=== PATIENT | female | born 1955 | race Caucasian/White ===

== ENCOUNTER → 2016-09-02 | Outpatient (CLI) | payer OTHER, BC ==
[~2016-09-02] MED LIST: ASPEC325 PO; ATOR-24 PO; CLOP1TAB15 PO; METO50TA16 PO; NTRGSL/4 SL
--- NOTE | 2016-09-02 12:38 | DIAGNOSTIC IMAGING REPORT ---
RIGHT ANKLE MIN 3 VIEWS ROUTINE CLINICAL HISTORY: ACUTE ANKLE PAIN R Right pain COMPARISON: None. DISCUSSION: The bones and joint spaces appear intact. There is no evidence of fracture, dislocation or bony disease. There is no evidence for soft tissue swelling. IMPRESSION: Negative study. Electronically signed by: Bishnu Thompson M.D. 09/02/2016 12:37 PM Dictated Date/Time: 09/02/2016 12:36 PM
== END | disposition home or self-care (01) ==
LOC: C.RAD1850 12:18
PROVIDERS: ATTEND Nurse Practitioner Family
DX: M25.571 Pain in right ankle and joints of right foot (principal)

== ENCOUNTER → 2017-01-21 | Outpatient (CLI) | payer BC, OTHER ==
--- NOTE | 2017-01-22 13:54 | MAMMOGRAPHY REPORT ---
BILATERAL DIGITAL SCREENING MAMMOGRAM TOMOSYNTHESIS WITH CAD: 01/21/2017 CLINICAL HISTORY: Routine screening. Patient has no complaints. TECHNIQUE: Breast tomosynthesis in addition to standard 2D mammography was performed. Current study was also evaluated with a Computer Aided Detection (CAD) system. COMPARISON: Comparison is made to exams dated: 01/10/2016 mammogram, 01/08/2015 mammogram, 01/05/2014 m ammogram, 01/04/2013 mammogram - [facility], 01/07/2008, and 12/30/2006. BREAST COMPOSITION: The tissue of both breasts is almost entirely fatty. FINDINGS: No suspicious mass, architectural distortion or cluster of microcalcifications is seen. IMPRESSION: ACR BI-RADS CATEGORY 1: NEGATIVE There is no mammographic evidence of malignancy. A 1 year screening mammogram is recommended. The pa tient will receive written notification of the results. Approximately 10% of breast cancers are not detected with mammography. A negative mammographic report should not delay biopsy if a clinically suggestive mass is present. Aundrea ramirez/jas:01/21/2017 15:12:09 Intrusion Analyst: Mena RUIZ(R)(M), [facility] letter sent: Normal 1/2 BI-RADS Code: ACR BI-RADS Category 1: Negative
== END | disposition home or self-care (01) ==
LOC: C.MAMM 14:47
PROVIDERS: ATTEND Family Medicine
DX: Z12.31 Encounter for screening mammogram for malignant neoplasm of breast (principal)

== ENCOUNTER → 2017-03-27 | Outpatient (CLI) | payer OTHER, BC ==
[2017-03-27 09:47] LABS: MANUAL MICROSCOPIC REQUIRED? YES; REVIEW REQ? NO; URINE APPEARANCE CLOUDY (CLEAR); URINE BILIRUBIN NEG (NEG); URINE COLOR RED; URINE NITRITE POS (NEG); UROBILINOGEN POS (NEG)
[2017-03-27 09:51] LABS: URINE BACTERIA NEG (NEG); URINE WBC >30 /hpf (0-5)
== END | disposition home or self-care (01) ==
LOC: C.LAB1850 08:51
PROVIDERS: ATTEND Obstetrics & Gynecology
DX: N39.0 Urinary tract infection, site not specified (principal)

== ENCOUNTER → 2017-04-01 | Outpatient (CLI) | payer BC | END | disposition home or self-care (01) | LOC: C.PATHSPEC 17:13 | PROVIDERS: ATTEND Urology | DX: N39.0 Urinary tract infection, site not specified (principal); R30.0 Dysuria; R31.0 Gross hematuria ==

== ENCOUNTER → 2017-04-10 | Outpatient (CLI) | payer BC, OTHER ==
[2017-04-10 13:26] LABS: ALBUMIN 3.9 gm/dl (3.4-5.0); ALKALINE PHOSPHATASE 78 U/L (45-117); ALT/SGPT 51 U/L (12-78); AST/SGOT 21 U/L (15-37); BLOOD UREA NITROGEN 14 mg/dl (7-18); CARBON DIOXIDE 26 mmol/L (21-32); CREATININE 0.64 mg/dl (0.60-1.20); GLUCOSE 102 mg/dl (70-99); POTASSIUM 3.8 mmol/L (3.5-5.1); SODIUM 139 mmol/L (136-145); TOTAL PROTEIN 7.2 gm/dl (6.4-8.2)
== END | disposition home or self-care (01) ==
LOC: C.LAB 11:33
PROVIDERS: ATTEND Urology
DX: N39.0 Urinary tract infection, site not specified (principal); R30.0 Dysuria; R31.0 Gross hematuria

== ENCOUNTER → 2017-04-17 | Outpatient (CLI) | payer BC, OTHER ==
[~2017-04-17] MED LIST changes: +OPTIRAY 320 IV PRN
--- NOTE | 2017-04-17 11:17 | DIAGNOSTIC IMAGING REPORT ---
ABDOMEN AND PELVIS CT WITH AND WITHOUT IV CONTRAST, UROGRAM PROTOCOL CT DOSE: 1669.94 mGycm HISTORY: N39.0 UTI (urinary tract infection)R30.0 [id number] Gross juliana TECHNIQUE: Multiaxial CT images of the abdomen and pelvis were performed both before and after the use of intravenous contrast to evaluate the urinary system. Maximal intensity projection images were performed at the workstation by the radiologist. A dose lowering technique was utilized adhering to the principles of ALARA. COMPARISON STUDY: None. FINDINGS: No renal or ureteral calculi. No hydronephrosis. No suspicious filling defects seen within the opacified bilateral renal collecting systems, ureters, or bladder. Of note, the mid right ureter is not opacified but normal in caliber. The bladder is also suboptimally evaluated due to decompression. No definite bladder masses. The lungs are clear. No suspicious lytic or blastic osseous lesions. Mild hepatic steatosis. Cholecystectomy. The pancreas, spleen, and adrenal glands are unremarkable. Small focal area of scarring within the upper pole of the right kidney. There is a 3 mm hypodense lesion within the right kidney which is too small to characterize. A 4.6 cm cyst within the lower pole of the left kidney. No bowel wall thickening or obstruction. Colonic diverticulosis. Normal appendix. No retroperitoneal lymphadenopathy. Hysterectomy. Bilateral ovarian cysts. Dominant cyst within the right ovary measures 1.9 cm. IMPRESSION: 1. No renal or ureteral stones. No hydronephrosis. 2. No suspicious filling defects seen within the opacified bilateral renal collecting systems, ureters, or bladder as described above. 3. Hysterectomy. Bilateral small ovarian cysts. Electronically signed by: Juan David Clinton M.D. 04/17/2017 11:15 AM Dictated Date/Time: 04/17/2017 11:02 AM
== END | disposition home or self-care (01) ==
LOC: C.CTS 10:26
PROVIDERS: ATTEND Urology
DX: N39.0 Urinary tract infection, site not specified (principal); R31.0 Gross hematuria; R30.0 Dysuria; N83.201 Unspecified ovarian cyst, right side

== ENCOUNTER → 2017-06-04 | Outpatient (CLI) | payer OTHER ==
[~2017-06-04] MED LIST changes: -OPTIRAY 320 IV PRN
== END | disposition home or self-care (01) ==
LOC: C.MAMM 12:54
PROVIDERS: ATTEND Family Medicine
DX: M85.851 Other specified disorders of bone density and structure, right thigh (principal); M85.852 Other specified disorders of bone density and structure, left thigh; M85.88 Other specified disorders of bone density and structure, other site

== ENCOUNTER → 2017-06-17 | Outpatient (CLI) | payer OTHER | END | disposition home or self-care (01) | LOC: C.LAB1850 15:01 | PROVIDERS: ATTEND Nurse Practitioner Adult Health | DX: N39.0 Urinary tract infection, site not specified (principal) ==

== ENCOUNTER → 2017-08-28 | Outpatient (CLI) | payer OTHER | END | disposition home or self-care (01) | LOC: C.LAB 15:02 | PROVIDERS: ATTEND Nurse Practitioner Family | DX: N39.0 Urinary tract infection, site not specified (principal); R30.0 Dysuria ==

== ENCOUNTER 2025-01-06 14:42 | Observation (INO) ==
--- NOTE | 2025-01-06 15:00 | Emergency Department Note ---
Impression & Plan Generalized weakness, MICHEAL (acute kidney injury), Hypercalcemia, S/P ureteral stent placement ED Provider Note NAME: JORDEN ROY AGE: 70 SEX: F : 1955 ARRIVES VIA: Walk-In INFORMANT: Patient, ED PROVIDER(S): Dex Sanches DO CHIEF COMPLAINT: Weakness HPI: The patient is a 70-year-old female who presented to the emergency department for an evaluation of generalized weakness. The patient states that she noticed generalized weakness over the last few days. She has a recent history of a kidney stone that was removed and she now has a ureteral stent. She states that she did peeing blood. She also notices pelvic cramping. She denies having any vomiting. She has had no fever or cough. She denies have any chest pain or hemoptysis. ROS: See above HPI for pertinent positives & negatives. A total of 10 systems reviewed and were otherwise negative. PAST MEDICAL HISTORY: See Below PAST SURGICAL HISTORY: See Below FAMILY HISTORY: See Below SOCIAL HISTORY: See Below HOME MEDICATIONS: See Below ALLERGIES: See Below VITALS: See Below PHYSICAL EXAMINATION: GENERAL: The patient is awake and alert. She follows commands slowly. EYES: The conjunctivae are clear. The pupils are round and reactive. EARS, NOSE, MOUTH AND THROAT: The nose is without any evidence of any deformity. NECK: The neck is nontender and supple. RESPIRATORY: Normal respiratory effort is noted there is no evidence of wheezing rhonchi or rales CARDIOVASCULAR: Regular rate and rhythm noted there no murmurs rubs or gallops normal S1 normal S2. GASTROINTESTINAL: The abdomen is soft. Abdomen is nontender. BACK: No midline tenderness or or step-off noted range of motion in flexion extension as well as rotation no signs of muscle spasm noted MUSCULOSKELETAL/EXTREMITIES: There is no evidence of gross deformity full range of motion is noted in the hips and shoulders. SKIN: Skin is warm and dry. There is no pedal edema. Skin is pale. NEUROLOGIC: Patient is awake and oriented x3 strength is symmetric patellar reflexes are 2+ bilaterally MEDICAL DECISION MAKING: The patient is a 70-year-old female who presented to the emergency department for an evaluation of generalized weakness. The patient is a history of a recently placed left ureteral stent. The patient states that she has not been doing well and not been eating not been drinking. The patient was treated with IV fluids in the emergency department. On reevaluation she was somewhat improved. I discussed the patient's laboratory and radiographic studies with her. She was found to have signs of electrolyte abnormality including elevated calcium. She was also treated for MICHEAL. On reevaluation she was somewhat improved. I discussed patient's laboratory and radiographic studies with her. I also discussed her condition with the on-call [facility] hospitalist. They have agreed to evaluate the patient in the emergency department for further management and disposition. Triage Nursing notes reviewed. Prior medical records reviewed Vital Signs: reviewed and remarkable for elevated blood pressure. Differential diagnosis: Infection, dehydration, metabolic abnormality, hypo/hyperglycemia, electrolyte disturbance, anemia, hypoxia, cardiac sources, intracerebral event, toxicologic, neurologic, as well as other pathologies. ER treatment provided: See below Diagnostics interpreted by me: ECG: EKG was obtained in the emergency department. My interpretation is normal sinus rhythm at 77 bpm. There is no ectopy. There is no acute ST segment abnormalities noted. Early transition was noted. This was compared to a tracing from December 15, 2024. No changes were noted. Cardiac Monitoring: An order was placed for continuous cardiac monitoring. The monitor shows a rate of 72 bpm with sinus rhythm. Laboratory studies: As stated above and show below. Imaging studies: See below. Radiographic imaging was reviewed by myself Consultation(s): I discussed this case with Dr. Atkins [facility] Past Med/Surg History Problem List (Updated 01/06/25 @ 16:16 by Dex Sanches DO) S/P ureteral stent placement (Acute) Hypercalcemia (Acute) MICHEAL (acute kidney injury) (Acute) Generalized weakness (Acute) Bilateral ovarian cysts Encounter for preoperative assessment (Acute) Nephrolithiasis (Acute) Hematuria (Acute) Impaired glucose tolerance Epidermal cyst Heart disease Hyperparathyroidism Hyperlipemia Arthritis Right knee DJD Chronic interstitial cystitis (Chronic) Osteoporosis (Acute) Postmenopausal atrophic vaginitis (Chronic) Recurrent UTI (Chronic) Antiplatelet or antithrombotic long-term use CAD (coronary artery disease) Status post insertion of drug-eluting stent into left anterior descending (LAD) artery Left knee DJD Left knee pain Medical History Hyperparathyroidism per chart, pt. unaware Recurrent UTI had last week, had Urine Culture yesterday 12/20/[address] whitaker' office, no current symptoms Osteoporosis Arthritis Nephrolithiasis Vertigo Dyslipidemia Chronic interstitial cystitis CAD (coronary artery disease) s/p cardiac stent x 1 to LAD in 2011 Tachycardia hx, no current issues Depression Menopausal symptoms Knee effusion, left Tear of medial meniscus of left knee states needs replaced Surgical History Hx of cardiac cath (2011) [facility], [place], 1 stent, dr. pina History of removal of cyst (05/04/23) FINAL DIAGNOSIS: In office procedure Dr. Izquierdo Skin, upper mid back, excision: - Findings most consistent with a ruptured epidermoid cyst Hx of colonoscopy History of coronary artery stent placement (2011) 1 stent H/O: hysterectomy (1989) Hx of tubal ligation Hx of cholecystectomy (1994) Family History Father Coronary heart disease Grandmother (Maternal) Colorectal cancer Denies family history of Ovarian cancer Breast cancer Social History Smoking Status: Never smoker Second Hand Exposure: No; Do You Dip or Chew Tobacco: No; Hx Alcohol Use: No Hx Substance Use: No Preferred Language: French Communication Ability: Effective Commercial Green Retrofit Architect Required: No Beliefs That Will Affect Care: None marital status: Current Living Situation: Spouse current occupational status: employed other: Car Sales Consultant at [employer] Feels Safe at Home: Yes Assistive Devices: Hearing Aid - Bilateral Allergies Allergies Allergy/AdvReac Type Severity Reaction Status Date / Time thiopental Allergy Severe Vomiting Verified 12/26/24 08:24 Arnica (Arnica [place]) Allergy Intermediate Shortness Verified 12/26/24 08:24 of breath Penicillins Allergy Mild rash Verified 12/26/24 08:24 Home Meds Home Medications Medication Instructions Recorded Confirmed aspirin 81 mg tablet 81 mg PO HS 05/17/19 12/26/24 coenzyme Q10 100 mg capsule 100 mg PO QAM 05/17/19 12/26/24 cranberry extract 250 mg tablet 250 mg PO BID 12/08/22 12/21/24 omega-3 acid ethyl esters 1 gram 1 cap PO QAM 05/25/24 12/26/24 capsule tirzepatide (weight loss) 2.5 2.5 mg subcut WK 12/13/24 12/26/24 mg/0.5 mL subcutaneous pen injector (Zepbound) [id number] 250 mg-dha 90 1 cap PO BID 12/15/24 12/26/24 mg-epa 160 [id number] capsule (Ocuvite Adult 50 Plus) Algaecal Collagen Powder 1 unit PO QAM 12/21/24 12/26/24 Algaecal Strontium Boost 2 tab PO HS 12/21/24 12/26/24 atorvastatin 20 mg tablet 20 mg PO QPM 12/21/24 12/26/24 calcium 500 mg tablet 0 mg PO BID 12/21/24 12/26/24 cholecalciferol (vitamin D3) 25 25 mcg PO DAILY 12/21/24 12/26/24 mcg (1,000 unit) capsule (Vitamin D3) clopidogrel 75 mg tablet 75 mg PO QAM 12/21/24 12/26/24 estradiol 0.01% (0.1 mg/gram) 1 g vaginal .COMPLEX PRN . 12/21/24 12/26/24 vaginal cream nitrofurantoin 100 mg PO Q12H PRN uti 12/21/24 12/26/24 monohydrate/macrocrystals 100 mg capsule (Macrobid) phenazopyridine 200 mg tablet 200 mg PO TID PRN uti 12/21/24 12/26/24 (Pyridium) venlafaxine 75 mg capsule,extended 75 mg PO QAM 12/21/24 12/26/24 release 24 hr Previous Rx's Medication Instructions Recorded phenazopyridine 200 mg tablet 200 mg PO Q8H PRN pain #10 tabs 12/26/24 (Pyridium) tamsulosin 0.4 mg capsule 0.4 mg PO HS #30 caps 12/26/24 Results & Data (ED) Vital Signs Vital Signs - 24 hr 01/06/25 14:47 01/06/25 15:20 01/06/25 15:24 Temperature 36.5 C Temperature Source Temporal Artery Scan Pulse Rate 88 68 69 Pulse Rate from SpO2 Sensor 70 Respiratory Rate 18 16 21 Respiratory Effort / Characteristics Non-Labored Spontaneous Respiratory Depth Normal Blood Pressure 132/83 Blood Pressure Mean 99 Pulse Oximetry 95 92 98 Oxygen Delivery Method Room Air Nasal Cannula Oxygen Flow Rate 2 Sepsis Recent Fever Within 48 Hours No Sepsis New/Unexplained Change in Mental Status No Sepsis Action Taken by Nursing No Action Required 01/06/25 15:27 01/06/25 15:30 01/06/25 15:30 Temperature Temperature Source Pulse Rate 70 73 Pulse Rate from SpO2 Sensor 72 Respiratory Rate 17 Respiratory Effort / Characteristics Respiratory Depth Blood Pressure 164/84 H Blood Pressure Mean 110 Pulse Oximetry 98 Oxygen Delivery Method Oxygen Flow Rate Sepsis Recent Fever Within 48 Hours Sepsis New/Unexplained Change in Mental Status Sepsis Action Taken by Nursing 01/06/25 15:30 01/06/25 15:30 01/06/25 15:48 Temperature Temperature Source Pulse Rate 78 Pulse Rate from SpO2 Sensor Respiratory Rate 13 Respiratory Effort / Characteristics Respiratory Depth Blood Pressure 164/84 H 164/84 H Blood Pressure Mean 110 110 Pulse Oximetry Oxygen Delivery Method Oxygen Flow Rate Sepsis Recent Fever Within 48 Hours Sepsis New/Unexplained Change in Mental Status Sepsis Action Taken by Nursing 01/06/25 15:57 01/06/25 16:00 01/06/25 16:09 Temperature Temperature Source Pulse Rate 56 L 70 Pulse Rate from SpO2 Sensor 70 71 Respiratory Rate 15 12 Respiratory Effort / Characteristics Respiratory Depth Blood Pressure 184/91 H Blood Pressure Mean 133 Pulse Oximetry 99 98 Oxygen Delivery Method Oxygen Flow Rate Sepsis Recent Fever Within 48 Hours Sepsis New/Unexplained Change in Mental Status Sepsis Action Taken by Nursing 01/06/25 16:18 Temperature Temperature Source Pulse Rate 72 Pulse Rate from SpO2 Sensor 72 Respiratory Rate 12 Respiratory Effort / Characteristics Respiratory Depth Blood Pressure 184/91 H Blood Pressure Mean 122 Pulse Oximetry 98 Oxygen Delivery Method Oxygen Flow Rate Sepsis Recent Fever Within 48 Hours Sepsis New/Unexplained Change in Mental Status Sepsis Action Taken by Longterm Medications Current Medication List: was personally reviewed by me Laboratory Data Attestation: I reviewed the patient's lab results. 01/06/25 15:04 01/06/25 15:04 Lab Results 01/06/25 01/06/25 Range/Units 15:04 15:12 WBC 7.26 (4.8-10.8) K/ul RBC 4.32 (4.20-5.40) M/uL Hgb 13.3 (12.0-16.0) g/dl POC Hgb 12.9 (12.0-16.0) g/dl Hct 38.2 (37.0-47.0) % POC Hct 38 (37-47) % MCV 88.4 (80.0-100.0) fL MCH 30.8 (25.0-34.0) pg MCHC 34.8 (32.0-36.0) g/dL RDW Std Deviation 41.3 (36.4-46.3) fL RDW Coeff of Ileana 12.6 (11.5-14.5) % Plt Count 245 (130-400) K/uL MPV 10.1 (9.4-12.4) fL Immature Gran % (Auto) 0.4 % Neut % (Auto) 73.9 % Lymph % (Auto) 11.0 % Mckenzie % (Auto) 10.7 % Eos % (Auto) 3.6 % Baso % (Auto) 0.4 % Neut # (Auto) 5.36 (1.40-6.50) K/uL Lymph # (Auto) 0.80 L (1.20-3.40) K/uL Mckenzie # (Auto) 0.78 H (0.11-0.59) K/uL Eos # (Auto) 0.26 (0.00-0.50) K/uL Baso # (Auto) 0.03 (0.00-0.20) K/uL Immature Gran # (Auto) 0.03 (0.01-0.20) K/uL POC Sodium 134 L (135-144) mmol/L Sodium 137 (136-145) mmol/L POC Potassium 3.2 L (3.3-5.0) mmol/L Potassium 3.3 L (3.5-5.1) mmol/L POC Chloride 96 L (101-112) mmol/L Chloride 95 L (98-107) mmol/L Carbon Dioxide 35 H (21-32) mmol/L POC Total CO2 34 H (24-31) mmol/L Anion Gap 7 (3-11) POC Anion Gap 8.0 L (16-25) mmol/L POC BUN 29 H (7-18) mg/dl BUN 29 H (6-23) mg/dl Creatinine 2.13 H (0.6-1.2) mg/dl POC Creatinine 2.7 H (0.6-1.3) mg/dl Est Cr Clr Drug Dosing Not Reportable eGFR 24.61 BUN/Creatinine Ratio 13.6 (10-20) Glucose 122 H (70-99(Fasting)) mg/dl POC Glucose (other) 123 H (70-99) mg/dl Calcium 17.9 H* (8.6-10.3) mg/dl POC Ioniz Calcium Antolin 2.13 H* (1.12-1.32) mmol/l Total Bilirubin 1.1 H (0.2-1.0) mg/dl AST 16 (13-39) U/L ALT 16 (7-52) U/L Alkaline Phosphatase 82 (34-104) U/L Troponin I High Sens 20.3 H (0-14) pg/ml Total Protein 6.9 (6.0-8.3) gm/dl Albumin 4.1 (3.4-5.0) gm/dl Globulin 2.8 (2.5-4.0) gm/dl Albumin/Globulin Ratio 1.5 (0.9-2) Lipase 13 (11-82) U/L Administered Medications Discontinued Medications Sodium Chloride (Nss) 1,000 mls @ 999 mls/hr IV .Q1H1M STA Stop: 01/06/25 15:56 Last Admin: 01/06/25 15:05 Dose: 999 mls/hr Documented By: MABLE Sodium Chloride (Nss) 1,000 mls @ 999 mls/hr IV .Q1H1M ONE Stop: 01/06/25 16:53 Last Admin: 01/06/25 16:02 Dose: 999 mls/hr Documented By: MABLE Imaging Data Attestation: I personally reviewed and interpreted this imaging study as follows: My Impression: CT scan of the abdomen and pelvis was obtained in the emergency department obstruction, final report below. Radiologist's Impression: Abdomen/Pelvis CT 01/06/25 15:21 CT SCAN OF THE ABDOMEN AND PELVIS WITHOUT IV CONTRAST CLINICAL HISTORY: Generalized abdominal pain. Recent stent placement. COMPARISON STUDY: Abdominal CT dated 12/06/2024 TECHNIQUE: CT scan of the abdomen and pelvis is performed from the lung bases to the proximal femora. Images are reviewed in the axial, sagittal, and coronal planes. IV contrast was not administered for this examination. A dose lowering technique was utilized adhering to the principles of ALARA. CT DOSE: 863.45 mGy.cm FINDINGS: Lung bases: The heart is normal in size and without pericardial effusion. The coronary arteries are densely calcified. There is a tiny hiatal hernia. The lung bases are clear. Liver: The unenhanced liver is normal in size, contour, and attenuation. There is no intrahepatic biliary ductal dilatation. Gallbladder: Surgically absent noting clips in the gallbladder fossa. Spleen: Normal in size and attenuation. Pancreas: The unenhanced pancreas is grossly unremarkable. Adrenal glands: Unremarkable. Kidneys: The unenhanced kidneys are normal in size. A right vesicoureteral stent is in appropriate position. No calcifications are identified in the right ureter along the course of the stent. Urothelial thickening involving the right ureter with surrounding infiltration is nonspecific and likely related to the presence of the stent. There is mild right-sided hydronephrosis. There are numerous (greater than 10) stone fragments scattered throughout the right renal collecting system which measure up to 8 mm. No left renal calculi are identified and there is no left ureteral stone or hydronephrosis. A 5.7 cm cyst arises from the left lower pole. Abdominal vasculature: The abdominal aorta is normal in course and caliber noting mild to moderate atherosclerotic calcification. Bowel: There is moderate sigmoid diverticulosis without CT evidence of acute diverticulitis. No bowel obstruction is seen. Mild to moderate fecal retention is noted throughout the colon. The appendix is well-visualized and normal. Peritoneum: There is no intraperitoneal free air or abdominal ascites. There is a fat-containing umbilical hernia. Lymphadenopathy: None. Pelvic viscera: The bladder is normal as visualized, and contains the distal end of a right ureteral stent. The uterus is surgically absent. Simple cystic foci are again seen within both ovaries and measure up to 2.7 cm. These were better assessed by a pelvic ultrasound on 12/14/2024. Skeletal structures: The skeletal structures are osteopenic. There is mild lumbosacral spondylosis. No lytic or blastic lesions are seen. IMPRESSION: 1. A right-sided ureteral stent is new previous. No calcifications are identified in the right ureter along the course of the stent. 2. Urothelial thickening of the right ureter with surrounding infiltration is nonspecific and may be related to presence of an indwelling catheter. Correlate with clinical findings and urinalysis. 3. There is mild right-sided hydronephrosis. 4. There are numerous stone fragments in the right renal collecting system which measure up to 8 mm. 5. There are no left renal calculi identified and no left-sided hydronephrosis. 6. Advanced coronary artery atherosclerosis. 7. Sigmoid diverticulosis without CT evidence of acute diverticulitis. 8. Additional findings as above. ACT 112: Negative or not required by law. Electronically signed by: Karl Urena M.D. 01/06/2025 4:00 PM Discharge Plan Visit Data Chief Complaint: Illness Stated Complaint: EXHAUSTION, DEHYDRATION, KIDNEY STONES REMOVED 12/26 ED Provider: Dex Sanches Discharge Problem: Generalized weakness, MICHEAL (acute kidney injury), Hypercalcemia, S/P ureteral stent placement Patient Disposition: Being Evaluated by Hospitalist Condition: Fair Forms Stand Alone Forms: My [facility] [employer] Prescriptions Prescriptions: No Action aspirin 81 mg tablet 81 mg PO HS coenzyme Q10 100 mg capsule 100 mg PO QAM omega-3 acid ethyl esters 1 gram capsule 1 cap PO QAM cranberry extract 250 mg tablet 250 mg PO BID Ocuvite Adult 50 Plus 250 mg (90 mg-160 mg) capsule 1 cap PO BID Zepbound 2.5 mg/0.5 mL pen injector 2.5 mg subcut WK Rx Instructions: Thursday Algaecal Collagen Powder 1 unit 1 unit PO QAM Algaecal Strontium Boost 1 unit 2 tab PO HS calcium 500 mg Tablet 0 mg PO BID cholecalciferol (vitamin D3) [Vitamin D3] 25 mcg (1,000 unit) Capsule 25 mcg PO DAILY Rx Instructions: also Vit A, E, and K mix venlafaxine 75 mg capsule,extended release 24hr 75 mg PO QAM atorvastatin 20 mg tablet 20 mg PO QPM phenazopyridine [Pyridium] 200 mg tablet 200 mg PO TID PRN (Reason: uti) clopidogrel 75 mg tablet 75 mg PO QAM estradiol 0.01 % (0.1 mg/gram) cream 1 g PV .COMPLEX PRN (Reason: .) Rx Instructions: 1 g vaginally twice weekly; nitrofurantoin monohyd/m-cryst [Macrobid] 100 mg capsule 100 mg PO Q12H PRN (Reason: uti) Rx Instructions: must administer with a meal/food phenazopyridine [Pyridium] 200 mg tablet 200 mg PO Q8H PRN (Reason: pain) Qty: 10 0RF tamsulosin 0.4 mg capsule 0.4 mg PO HS Qty: 30 0RF Referrals Referrals: Reji Jones [Primary Care Provider] -
[2025-01-06] MEDS: SODIUM CHLORIDE 0.9% 1,000 ML IV STA (15:05)
[2025-01-06 15:20] LABS: Hematocrit (blood only) 38.2 % (37.0-47.0); Hemoglobin 13.3 g/dl (12.0-16.0); Immature Granulocytes # (auto) 0.03 K/uL (0.01-0.20); Immature Granulocytes % (auto) 0.4 %; Mean Corpuscular Hemoglobin 30.8 pg (25.0-34.0); Mean Corpuscular Volume 88.4 fL (80.0-100.0); Platelet Count 245 K/uL (130-400); RDW Standard Deviation 41.3 fL (36.4-46.3); Red Blood Count 4.32 M/uL (4.20-5.40); White Blood Count 7.26 K/ul (4.8-10.8)
--- NOTE | 2025-01-06 16:01 | CT Scan Report ---
CT SCAN OF THE ABDOMEN AND PELVIS WITHOUT IV CONTRAST CLINICAL HISTORY: Generalized abdominal pain. Recent stent placement. COMPARISON STUDY: Abdominal CT dated 12/06/2024 TECHNIQUE: CT scan of the abdomen and pelvis is performed from the lung bases to the proximal femora. Images are reviewed in the axial, sagittal, and coronal planes. IV contrast was not administered for this examination. A dose lowering technique was utilized adhering to the principles of ALARA. CT DOSE: 863.45 mGy.cm FINDINGS: Lung bases: The heart is normal in size and without pericardial effusion. The coronary arteries are d ensely calcified. There is a tiny hiatal hernia. The lung bases are clear. Liver: The unenhanced liver is normal in size, contour, and attenuation. There is no intrahepatic lopez iary ductal dilatation. Gallbladder: Surgically absent noting clips in the gallbladder fossa. Spleen: Normal in size and attenuation. Pancreas: The unenhanced pancreas is grossly unremarkable. Adrenal glands: Unremarkable. Kidneys: The unenhanced kidneys are normal in size. A right vesicoureteral stent is in appropriate po sition. No calcifications are identified in the right ureter along the course of the stent. Urothelia l thickening involving the right ureter with surrounding infiltration is nonspecific and likely relat ed to the presence of the stent. There is mild right-sided hydronephrosis. There are numerous (greate r than 10) stone fragments scattered throughout the right renal collecting system which measure up to 8 mm. No left renal calculi are identified and there is no left ureteral stone or hydronephrosis. A 5.7 cm cyst arises from the left lower pole. Abdominal vasculature: The abdominal aorta is normal in course and caliber noting mild to moderate at herosclerotic calcification. Bowel: There is moderate sigmoid diverticulosis without CT evidence of acute diverticulitis. No bowel obstruction is seen. Mild to moderate fecal retention is noted throughout the colon. The appendix is well-visualized and normal. Peritoneum: There is no intraperitoneal free air or abdominal ascites. There is a fat-containing umbi lical hernia. Lymphadenopathy: None. Pelvic viscera: The bladder is normal as visualized, and contains the distal end of a right ureteral stent. The uterus is surgically absent. Simple cystic foci are again seen within both ovaries and christi sure up to 2.7 cm. These were better assessed by a pelvic ultrasound on 12/14/2024. Skeletal structures: The skeletal structures are osteopenic. There is mild lumbosacral spondylosis. N o lytic or blastic lesions are seen. IMPRESSION: 1. A right-sided ureteral stent is new previous. No calcifications are identified in the right ureter along the course of the stent. 2. Urothelial thickening of the right ureter with surrounding infiltration is nonspecific and may be related to presence of an indwelling catheter. Correlate with clinical findings and urinalysis. 3. There is mild right-sided hydronephrosis. 4. There are numerous stone fragments in the right renal collecting system which measure up to 8 mm. 5. There are no left renal calculi identified and no left-sided hydronephrosis. 6. Advanced coronary artery atherosclerosis. 7. Sigmoid diverticulosis without CT evidence of acute diverticulitis. 8. Additional findings as above. ACT 112: Negative or not required by law. Electronically signed by: Karl Urena M.D. 01/06/2025 4:00 PM
[2025-01-06] MEDS: SODIUM CHLORIDE 0.9% 1,000 ML IV ONE (16:02)
[2025-01-06 16:07] LABS: Alanine Aminotransferase 16 U/L (7-52); Albumin Globulin Ratio 1.5 (0.9-2); Albumin Level 4.1 gm/dl (3.4-5.0); Alkaline Phosphatase 82 U/L (34-104); Anion Gap 7 (3-11); Bilirubin,Total 1.1 mg/dl (0.2-1.0); Blood Urea Nitrogen 29 mg/dl (6-23); Calcium 17.9 mg/dl (8.6-10.3); Carbon Dioxide 35 mmol/L (21-32); Chloride 95 mmol/L (98-107); Globulin 2.8 gm/dl (2.5-4.0); Glucose 122 mg/dl (70-99(Fasting)); Lipase 13 U/L (11-82); Potassium 3.3 mmol/L (3.5-5.1); Sodium 137 mmol/L (136-145); Total Protein 6.9 gm/dl (6.0-8.3)
[2025-01-06] MEDS ORDERED: ACETAMINOPHEN 325 MG TAB PO PRN (17:21)
[2025-01-06] MEDS ORDERED: ONDANSETRON INJ 2 MG/ML 2 ML VIAL IV PRN (17:21)
--- NOTE | 2025-01-06 17:21 | History & Physical Report ---
Date of Service January 06, 2025 Assessment & Plan (1) Hypercalcemia: (2) S/P ureteral stent placement: (3) Generalized weakness: (4) Hematuria: (5) Nephrolithiasis: (6) CAD (coronary artery disease): (7) Hyperparathyroidism: Plan This a 70-year-old female with a history of CAD status post stents, kidney stones, status post ureteral stone who presents to the hospital with generalized weakness. Found to have hypercalcemia 1. Hypercalcemia: Etiology is uncertain, could be due to taking calcium supplements, or due to hyperparathyroidism Presented with a calcium of 17.3 Will check intact PTH Start IV normal saline 100 cc/h IV zoledronic acid once Recheck calcium in the morning 2. Generalized weakness: Most likely due to hypercalcemia and dehydration Continue IV fluid as above 3. Kidney stone: Status post ureteral stent Bed patient, plan is for urology to remove the stent outpatient on Thursday However she has been having hematuria since the insertion, will consult urology, they may decide to remove the stent early 4. CAD: Status post stent in LAD Continue Plavix, aspirin 5. Hematuria: Recently had a stent inserted According to the patient, hematuria is mild and does not involve blood clots Hemoglobin is stable 6.MICHEAL: Most likely prerenal due to dehydration Continue IV normal saline 100 cc/h CT scan showed evidence of mild hydronephrosis Full code Admit to med surg History of Present Illness Chief Complaint: Generalized weakness, blood in urine Primary Care Provider: Reji Jones Is a 70-year-old female with a history of CAD status post stent, kidney stone, status post ureteral stent who presents to the hospital today on account of generalized weakness. According to the patient, she noted that she been feeling weak over the past few days since she got her ureteral stent. She admits seeing some blood in the urine however told the urologist by the urologist advised that if the blood is not in clots she should not worry too much about it. Here in the emergency department, potassium was 3.2 creatinine 2.13 serum calcium was 17.9. She admits to taking calcium supplements CT scan of the abdomen and pelvis was also done which showed a right-sided ureteral stent in situ and the mild right-sided hydronephrosis. There were also numerous stone fragments in the right renal collecting system. Patient has been started on IV fluids and will be admitted to the hospital further management. Allergies Allergy/AdvReac Type Severity Reaction Status Date / Time thiopental Allergy Severe Vomiting Verified 12/26/24 08:24 Arnica ([place]) Allergy Intermediate Shortness Verified 12/26/24 08:24 of breath Penicillins Allergy Mild rash Verified 12/26/24 08:24 Home Medications Medication Instructions Recorded Confirmed Type aspirin 81 mg tablet 81 mg PO HS 05/17/19 12/26/24 History coenzyme Q10 100 mg capsule 100 mg PO QAM 05/17/19 12/26/24 History cranberry extract 250 mg tablet 250 mg PO BID 12/08/22 12/21/24 History omega-3 acid ethyl esters 1 gram 1 cap PO QAM 05/25/24 12/26/24 History capsule tirzepatide (weight loss) 2.5 2.5 mg subcut WK 12/13/24 12/26/24 History mg/0.5 mL subcutaneous pen injector (Zepbound) [id number] 250 mg-dha 90 1 cap PO BID 12/15/24 12/26/24 History mg-epa 160 qg-mhbp-sfrh-zeax capsule (Ocuvite Adult 50 Plus) Algaecal Collagen Powder 1 unit PO QAM 12/21/24 12/26/24 History Algaecal Strontium Boost 2 tab PO HS 12/21/24 12/26/24 History atorvastatin 20 mg tablet 20 mg PO QPM 12/21/24 12/26/24 History calcium 500 mg tablet 0 mg PO BID 12/21/24 12/26/24 History cholecalciferol (vitamin D3) 25 25 mcg PO DAILY 12/21/24 12/26/24 History mcg (1,000 unit) capsule (Vitamin D3) clopidogrel 75 mg tablet 75 mg PO QAM 12/21/24 12/26/24 History estradiol 0.01% (0.1 mg/gram) 1 g vaginal .COMPLEX PRN . 12/21/24 12/26/24 History vaginal cream nitrofurantoin 100 mg PO Q12H PRN uti 12/21/24 12/26/24 History monohydrate/macrocrystals 100 mg capsule (Macrobid) phenazopyridine 200 mg tablet 200 mg PO TID PRN uti 12/21/24 12/26/24 History (Pyridium) venlafaxine 75 mg capsule,extended 75 mg PO QAM 12/21/24 12/26/24 History release 24 hr phenazopyridine 200 mg tablet 200 mg PO Q8H PRN pain #10 tabs 12/26/24 Rx (Pyridium) tamsulosin 0.4 mg capsule 0.4 mg PO HS #30 caps 12/26/24 Rx Past Med/Surg History Problem List (Updated 01/06/25 @ 16:16 by Dex Sanches DO) S/P ureteral stent placement (Acute) Hypercalcemia (Acute) MICHEAL (acute kidney injury) (Acute) Generalized weakness (Acute) Bilateral ovarian cysts Encounter for preoperative assessment (Acute) Nephrolithiasis (Acute) Hematuria (Acute) Impaired glucose tolerance Epidermal cyst Heart disease Hyperparathyroidism Hyperlipemia Arthritis Right knee DJD Chronic interstitial cystitis (Chronic) Osteoporosis (Acute) Postmenopausal atrophic vaginitis (Chronic) Recurrent UTI (Chronic) Antiplatelet or antithrombotic long-term use CAD (coronary artery disease) Status post insertion of drug-eluting stent into left anterior descending (LAD) artery Left knee DJD Left knee pain Medical History Hyperparathyroidism per chart, pt. unaware Recurrent UTI had last week, had Urine Culture yesterday 12/20/[address] whitaker' office, no current symptoms Osteoporosis Arthritis Nephrolithiasis Vertigo Dyslipidemia Chronic interstitial cystitis CAD (coronary artery disease) s/p cardiac stent x 1 to LAD in 2011 Tachycardia hx, no current issues Depression Menopausal symptoms Knee effusion, left Tear of medial meniscus of left knee states needs replaced Surgical History Hx of cardiac cath (2011) [facility], [place], 1 stent, dr. pina History of removal of cyst (05/04/23) FINAL DIAGNOSIS: In office procedure Dr. Izquierdo Skin, upper mid back, excision: - Findings most consistent with a ruptured epidermoid cyst Hx of colonoscopy History of coronary artery stent placement (2011) 1 stent H/O: hysterectomy (1989) Hx of tubal ligation Hx of cholecystectomy (1994) Family History Father Coronary heart disease Grandmother (Maternal) Colorectal cancer Denies family history of Ovarian cancer Breast cancer Social History Smoking Status: Never smoker Second Hand Exposure: No; Do You Dip or Chew Tobacco: No; Hx Alcohol Use: No Hx Substance Use: No Preferred Language: Spanish Communication Ability: Effective Regulatory Submissions Specialist Required: No Beliefs That Will Affect Care: None marital status: Current Living Situation: Spouse current occupational status: employed other: Front Window Cashier at [employer] Feels Safe at Home: Yes Assistive Devices: Hearing Aid - Bilateral Review of Systems Review of Systems: All systems reviewed are negative, apart from the ones contained in the history. Physical Exam Physical Exam: The patient is awake, alert and oriented 3, well developed and well nourished, normocephalic and atraumatic, lying in bed and in no acute distress. HEENT--PERRL, EOMI, mucous membranes and oropharynx mildly dry Neck--supple. No JVD. No bruits. Thyroid normal, trachea midline, no adenopathy. Heart--normal S1 and S2. No murmurs, rubs or gallops. Lungs--clear bilaterally, no respiratory distress, no accessory muscle use. Abdomen--normal bowel sounds and soft. Extremities--no cyanosis or clubbing. No edema. Dermatologic--normal skin turgor, normal color, no abnormal lymph nodes, no rash. Neurologic--cranial nerves II through XII grossly intact. Rheumatologic--normal range of motion. Psychiatric--normal affect. Results & Data Results & Data Vital Signs (Past 12 Hours) Vital Signs Temp Pulse Resp BP Pulse Ox O2 Del Method O2 Flow Rate 01/06/25 17:06 74 18 128/89 98 01/06/25 16:57 70 13 97 01/06/25 16:45 70 12 98 01/06/25 16:21 71 12 98 01/06/25 16:18 72 12 184/91 H 98 01/06/25 16:09 70 12 98 01/06/25 16:00 184/91 H 01/06/25 15:57 56 L 15 99 01/06/25 15:48 78 13 01/06/25 15:30 164/84 H 01/06/25 15:30 164/84 H 01/06/25 15:30 164/84 H 01/06/25 15:30 73 17 98 01/06/25 15:27 70 01/06/25 15:24 69 21 98 01/06/25 15:20 68 16 92 Nasal Cannula 2 01/06/25 14:47 97.7 F 88 18 132/83 95 Room Air PG Care Time/CCT Total # of Minutes Spent Total Time Spent with Patient: Total time spent is greater than 50% in coordination of care (as documented) at patient's floor/unit and/or counseling patient: Coding Level of Care Code 27163 INT INP/OBS CARE 3/75MIN Diagnoses Hypercalcemia E83.52 S/P ureteral stent placement Z96.0 Generalized weakness R53.1 Gross hematuria R31.0 Hematuria type: gross Nephrolithiasis N20.0 Coronary artery disease involving [place] coronary artery of [place] heart without angina pectoris I25.10 Coronary Disease-Associated Artery/Lesion type: [place] artery [place] vs. transplanted heart: [place] heart Associated angina: without angina Hyperparathyroidism E21.3 Time Spent (min) 75 (4) Hematuria Hematuria type: gross Qualified Code(s): R31.0 - Gross hematuria (6) CAD (coronary artery disease) Coronary Disease-Associated Artery/Lesion type: [place] artery [place] vs. transplanted heart: [place] heart Associated angina: without angina Qualified Code(s): I25.10 - Atherosclerotic heart disease of [place] coronary artery without angina pectoris
[2025-01-06] MEDS ORDERED: ZOLEDRONIC ACID IV ONE (18:00)
[2025-01-06] MEDS: ZOLEDRONIC ACID 4 MG in NS MINI-B 100 ML IV ONE (18:28)
[2025-01-06] MEDS: SODIUM CHLORIDE 0.9% 1,000 ML IV SCH (18:52)
[2025-01-06] MEDS: ASPIRIN 81 MG ECTAB PO SCH (22:18)
[2025-01-06] MEDS: TAMSULOSIN HCL 0.4 MG CAP PO SCH (22:18)
[2025-01-06] MEDS: ATORVASTATIN 20 MG TAB PO SCH (22:18)
--- NOTE | 2025-01-06 22:40 | Electrocardiogram Report ---
Test Reason : Blood Pressure : */* mmHG Vent. Rate : 77 BPM Atrial Rate : 77 BPM P-R Int : 158 ms QRS Dur : 86 ms QT Int : 382 ms P-R-T Axes : 49 -8 12 degrees QTcB Int : 432 ms Normal sinus rhythm Nonspecific T wave abnormality Abnormal ECG When compared with ECG of 15-Dec-2024 09:26, (unconfirmed) No significant change was found Confirmed by Juan Phillip ([id number]) on 01/06/2025 10:40:43 PM Referred By: Confirmed By: Juan Phillip
[2025-01-06 23:11] LABS: Appearance Urine Cloudy (Clear); Bacteria Urine Automated None Seen (None Seen); Epithelial Cell Urine Auto 0-2 /hpf (0-2); Glucose Urine UA Negative (Negative); RBC Urine Automated >20 /hpf (0-2)
--- NOTE | 2025-01-07 08:26 | Urology Consultation ---
Date of Consultation January 07, 2025 Assessment & Plan (1) Hematuria: (2) S/P ureteral stent placement: Plan 70-year-old female currently admitted due to hypercalcemia. She is status post right stone treatment with a current indwelling stent and urology was consulted for hematuria Stent is in appropriate position and hematuria is expected while stent is in place. No acute urologic intervention necessary. Patient can continue anticoagulation Suspect MICHEAL is medical renal in nature Patient had a lot of questions about her hypercalcemia and why she felt poorly and I explained that this was unrelated to the stent. She has stent removal scheduled on Thursday and we will keep that appointment assuming she is discharged from the hospital at that time Urology to sign off History of Present Illness Attending Physician: Sanjay Atkins MD History of Present Illness 70-year-old female who has a history of stone disease and is status post right ureteroscopy for stone treatment and stent placement on 12/26/2024. Plan was to remove the stent in 1 to 2 weeks in clinic. She was admitted on 01/06/2025 for generalized weakness and hypercalcemia. Labs yesterday show a white blood cell count of 7.2, hemoglobin of 13.3, creatinine of 2.13 with a baseline of 0.7, calcium of 718.9 and a urinalysis that was positive for leukocyte esterase, white blood cells, RBCs which is expected in the setting of a stent. She had a CT scan of the abdomen pelvis which I independently reviewed and shows an appropriately positioned right ureteral stent with no hydronephrosis. Urology was consulted for hematuria which is expected with a stent in place. Allergies Allergy/AdvReac Type Severity Reaction Status Date / Time thiopental Allergy Severe Vomiting Verified 01/06/25 17:38 Arnica (Arnica [place]) Allergy Intermediate Shortness Verified 01/06/25 17:38 of breath Penicillins Allergy Mild rash Verified 01/06/25 17:38 Home Medications Medication Instructions Recorded Confirmed Type aspirin 81 mg tablet 81 mg PO HS 05/17/19 01/06/25 History coenzyme Q10 100 mg capsule 100 mg PO QAM 05/17/19 01/06/25 History omega-3 acid ethyl esters 1 gram 1 cap PO QAM 05/25/24 01/06/25 History capsule tirzepatide (weight loss) 2.5 2.5 mg subcut WK 12/13/24 01/06/25 History mg/0.5 mL subcutaneous pen injector (Zepbound) [id number] 250 mg-dha 90 1 cap PO BID 12/15/24 01/06/25 History mg-epa 160 uc-txpu-fcrm-zeax capsule (Ocuvite Adult 50 Plus) Algaecal Collagen Powder 1 unit PO QAM 12/21/24 01/06/25 History Algaecal Strontium Boost 2 tab PO HS 12/21/24 01/06/25 History atorvastatin 20 mg tablet 20 mg PO QPM 12/21/24 01/06/25 History cholecalciferol (vitamin D3) 25 25 mcg PO DAILY 12/21/24 01/06/25 History mcg (1,000 unit) capsule (Vitamin D3) clopidogrel 75 mg tablet 75 mg PO QAM 12/21/24 01/06/25 History estradiol 0.01% (0.1 mg/gram) 1 g vaginal 2XWK PRN Dryness 12/21/24 01/06/25 History vaginal cream nitrofurantoin 100 mg PO Q12H PRN uti 12/21/24 01/06/25 History monohydrate/macrocrystals 100 mg capsule (Macrobid) venlafaxine 75 mg capsule,extended 75 mg PO QAM 12/21/24 01/06/25 History release 24 hr phenazopyridine 200 mg tablet 200 mg PO Q8H PRN pain #10 tabs 12/26/24 01/06/25 Rx (Pyridium) tamsulosin 0.4 mg capsule 0.4 mg PO HS #30 caps 12/26/24 01/06/25 Rx cranberry extract 250 mg capsule 250 mg PO BID 01/06/25 01/06/25 History glucosamine sulf dipot 1 cap PO BID 01/06/25 01/06/25 History chlr,msm,chond 550 mg-C 30 mg-candelaria 1 mg capsule (Glucosamine Chondroitin) Patient History Medical History Hyperparathyroidism per chart, pt. unaware Recurrent UTI had last week, had Urine Culture yesterday 12/20/[address] whitaker' office, no current symptoms Osteoporosis Arthritis Nephrolithiasis Vertigo Dyslipidemia Chronic interstitial cystitis CAD (coronary artery disease) s/p cardiac stent x 1 to LAD in 2012 Tachycardia hx, no current issues Depression Menopausal symptoms Knee effusion, left Tear of medial meniscus of left knee states needs replaced Surgical History Hx of cardiac cath (2011) [facility], [place], 1 [place], dr. pina History of removal of cyst (05/04/23) FINAL DIAGNOSIS: In office procedure Dr. Izquierdo Skin, upper mid back, excision: - Findings most consistent with a ruptured epidermoid cyst Hx of colonoscopy History of coronary artery stent placement (2011) 1 stent H/O: hysterectomy (1989) Hx of tubal ligation Hx of cholecystectomy (1994) Family History Father Coronary heart disease Grandmother (Maternal) Colorectal cancer Denies family history of Ovarian cancer Breast cancer Social History Smoking Status: Never smoker Second Hand Exposure: No; Do You Dip or Chew Tobacco: No; Hx Alcohol Use: Yes Alcohol type: wine Hx Substance Use: No Preferred Language: Bulgarian Communication Ability: Effective Bi Specialist Required: No Beliefs That Will Affect Care: None marital status: Current Living Situation: Spouse Current Living Situation Comment: lives at home w/ current occupational status: 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[employer] Feels Safe at Home: Yes Assistive Devices: Glasses and Hearing Aid - Bilateral Physical Exam Physical Exam: General: Alert and oriented, no acute distress HEENT: Normocephalic, mucous membranes moist Pulmonary: Nonlabored respirations Abdomen: Nondistended Extremities: Moves all 4 spontaneously Neuro: No gross deficits Skin: Warm, dry, no rashes noted Results & Data Vital Signs (Past 12 Hours) Vital Signs Temp Pulse Pulse Resp BP BP Pulse Ox 01/07/25 07:35 36.5 C 59 L 18 104/60 97 01/06/25 23:20 01/06/25 23:20 36.5 C 75 18 125/67 96 01/06/25 22:42 68 14 98 01/06/25 22:36 69 15 97 01/06/25 22:30 182/89 H 01/06/25 22:30 182/89 H 01/06/25 22:21 68 19 99 01/06/25 22:12 69 16 97 01/06/25 22:06 70 15 98 01/06/25 22:00 162/80 H 01/06/25 21:48 73 17 98 01/06/25 21:18 68 16 97 01/06/25 21:00 160/79 H 01/06/25 21:00 68 12 99 01/06/25 20:54 70 17 95 01/06/25 20:45 73 12 95 01/06/25 20:30 160/84 H 01/06/25 20:30 160/84 H 01/06/25 20:30 160/84 H 01/06/25 20:30 160/84 H 01/06/25 20:24 72 14 97 O2 Del Method O2 Flow Rate 01/07/25 07:35 Nasal Cannula 2 01/06/25 23:20 Nasal Cannula 2 01/06/25 23:20 Nasal Cannula 2 01/06/25 22:42 01/06/25 22:36 01/06/25 22:30 01/06/25 22:30 01/06/25 22:21 01/06/25 22:12 01/06/25 22:06 01/06/25 22:00 01/06/25 21:48 01/06/25 21:18 01/06/25 21:00 01/06/25 21:00 01/06/25 20:54 01/06/25 20:45 01/06/25 20:30 01/06/25 20:30 01/06/25 20:30 01/06/25 20:30 01/06/25 20:24 PG Care Time/CCT Total # of Minutes Spent Total Time Spent with Patient: Total time spent is greater than 50% in coordination of care (as documented) at patient's floor/unit and/or counseling patient: Coding Level of Care Code 47819 INT INP/OBS CARE 2/55MIN Diagnoses Gross hematuria R31.0 Hematuria type: gross S/P ureteral stent placement Z96.0 (1) Hematuria Hematuria type: gross Qualified Code(s): R31.0 - Gross hematuria
[2025-01-07] MEDS: CLOPIDOGREL BISULFATE 75 MG TAB PO SCH (09:31)
[2025-01-07] MEDS: VENLAFAXINE HCL XR 75 MG CAPXR PO SCH (09:31)
--- NOTE | 2025-01-07 10:35 | Hospitalist Progress Note ---
Date of Service January 07, 2025 Assessment & Plan (1) Hypercalcemia: (2) S/P ureteral stent placement: (3) Generalized weakness: (4) Hematuria: (5) Nephrolithiasis: (6) CAD (coronary artery disease): (7) Hyperparathyroidism: Plan This a 70-year-old female with a history of CAD status post stents, kidney stones, status post ureteral stone who presents to the hospital with generalized weakness. Found to have hypercalcemia 1. Hypercalcemia: Etiology is uncertain, could be due to taking calcium supplements, or due to hyperparathyroidism Presented with a calcium of 17.3 intact PTH in wnl Start IV normal saline 100 cc/h IV zoledronic acid once Recheck calcium in the morning still pending 2. Generalized weakness: Most likely due to hypercalcemia and dehydration Continue IV fluid as above 3. Kidney stone: Status post ureteral stent Bed patient, plan is for urology to remove the stent outpatient on Thursday However she has been having hematuria since the insertion, will consult urology, they may decide to remove the stent early 4. CAD: Status post stent in LAD Continue Plavix, aspirin 5. Hematuria: Recently had a stent inserted According to the patient, hematuria is mild and does not involve blood clots Hemoglobin is stable 6.MICHEAL: Most likely prerenal due to dehydration Continue IV normal saline 100 cc/h CT scan showed evidence of mild hydronephrosis Full code Admit to med surg Admission and Anticipated Discharge Date Admission Date: January 06, 2025 Subjective patient seen and examined, spouse by the bedside, no new complaints Review of Systems Review of Systems: All systems reviewed are negative, apart from the ones contained in the history. Physical Exam Physical Exam: The patient is awake, alert and oriented 3, well developed and well nourished, normocephalic and atraumatic, lying in bed and in no acute distress. HEENT--PERRL, EOMI, mucous membranes and oropharynx mildly dry Neck--supple. No JVD. No bruits. Thyroid normal, trachea midline, no adenopathy. Heart--normal S1 and S2. No murmurs, rubs or gallops. Lungs--clear bilaterally, no respiratory distress, no accessory muscle use. Abdomen--normal bowel sounds and soft. Extremities--no cyanosis or clubbing. No edema. Dermatologic--normal skin turgor, normal color, no abnormal lymph nodes, no rash. Neurologic--cranial nerves II through XII grossly intact. Rheumatologic--normal range of motion. Psychiatric--normal affect. Results & Data Results & Data Vital Signs (Past 12 Hours) Vital Signs Temp Pulse Pulse Resp BP Pulse Ox O2 Del Method 01/07/25 09:19 92 Room Air 01/07/25 07:35 97.7 F 59 L 18 104/60 97 Nasal Cannula 01/06/25 23:20 Nasal Cannula 01/06/25 23:20 97.7 F 75 18 125/67 96 Nasal Cannula 01/06/25 22:42 68 14 98 01/06/25 22:36 69 15 97 O2 Flow Rate 01/07/25 09:19 01/07/25 07:35 2 01/06/25 23:20 2 01/06/25 23:20 2 01/06/25 22:42 01/06/25 22:36 PG Care Time/CCT Total # of Minutes Spent Total Time Spent with Patient: Total time spent is greater than 50% in coordination of care (as documented) at patient's floor/unit and/or counseling patient: Coding Level of Care Code 41034 SUB INP/OBS CARE 235MIN Diagnoses Hypercalcemia E83.52 S/P ureteral stent placement Z96.0 Generalized weakness R53.1 Gross hematuria R31.0 Hematuria type: gross Nephrolithiasis N20.0 Coronary artery disease involving [place] coronary artery of [place] heart without angina pectoris I25.10 Coronary Disease-Associated Artery/Lesion type: [place] artery [place] vs. transplanted heart: [place] heart Associated angina: without angina Hyperparathyroidism E21.3 Time Spent (min) 35 (4) Hematuria Hematuria type: gross Qualified Code(s): R31.0 - Gross hematuria (6) CAD (coronary artery disease) Coronary Disease-Associated Artery/Lesion type: [place] artery [place] vs. transplanted heart: [place] heart Associated angina: without angina Qualified Code(s): I25.10 - Atherosclerotic heart disease of [place] coronary artery without angina pectoris
[2025-01-07 11:56] LABS: Anion Gap 7.0 (3-11); Blood Urea Nitrogen 31.0 mg/dl (6-23); Calcium 13.7 mg/dl (8.6-10.3); Carbon Dioxide 30.0 mmol/L (21-32); Chloride 101.0 mmol/L (98-107); Creatinine Clr Calc Pharmacy 27.7 ml/min; Glucose 85.0 mg/dl (70-99(Fasting)); Potassium 2.8 mmol/L (3.5-5.1); Sodium 138.0 mmol/L (136-145)
[2025-01-07] MEDS ORDERED: ZOLEDRONIC ACID 5 MG in EMPTY BAG 1 ML IV ONE (12:44)
[2025-01-07] MEDS ORDERED: ZOLEDRONIC ACID 4 MG in NS MINI-B 100 ML IV ONE (13:00)
[2025-01-07] MEDS: POTASSIUM CHLORIDE CRTAB 20 MEQ TABCR PO STA (13:30)
[2025-01-08 06:46] LABS: Hematocrit (blood only) 25.9 % (37.0-47.0); Hemoglobin 9.1 g/dl (12.0-16.0); Mean Corpuscular Hemoglobin 30.7 pg (25.0-34.0); Mean Corpuscular Volume 87.5 fL (80.0-100.0); Platelet Count 158 K/uL (130-400); RDW Standard Deviation 39.7 fL (36.4-46.3); Red Blood Count 2.96 M/uL (4.20-5.40); White Blood Count 8.12 K/ul (4.8-10.8)
[2025-01-08 07:18] LABS: Anion Gap 6.0 (3-11); Blood Urea Nitrogen 26.0 mg/dl (6-23); Calcium 11.0 mg/dl (8.6-10.3); Carbon Dioxide 26.0 mmol/L (21-32); Chloride 104.0 mmol/L (98-107); Creatinine Clr Calc Pharmacy 30.7 ml/min; Glucose 90.0 mg/dl (70-99(Fasting)); Potassium 3.0 mmol/L (3.5-5.1); Sodium 136.0 mmol/L (136-145)
[2025-01-08 07:21] VITALS: BP 100/61; PULSE 65; RESP 14; TEMP 98.4; O2SAT 94
[2025-01-08] MEDS: POTASSIUM CHLORIDE CRTAB 20 MEQ TABCR PO STA ×2 (07:40→11:32)
[2025-01-08 11:11] LABS: Anion Gap 4.0 (3-11); Blood Urea Nitrogen 23.0 mg/dl (6-23); Calcium 10.6 mg/dl (8.6-10.3); Carbon Dioxide 26.0 mmol/L (21-32); Chloride 106.0 mmol/L (98-107); Creatinine Clr Calc Pharmacy 30.9 ml/min; Glucose 97.0 mg/dl (70-99(Fasting)); Potassium 3.1 mmol/L (3.5-5.1); Sodium 136.0 mmol/L (136-145)
--- NOTE | 2025-01-08 11:21 | Discharge Summary ---
Date of Service January 08, 2025 Admission HPI Per Admitting Provider Is a 70-year-old female with a history of CAD status post stent, kidney stone, status post ureteral stent who presents to the hospital today on account of generalized weakness. According to the patient, she noted that she been feeling weak over the past few days since she got her ureteral stent. She admits seeing some blood in the urine however told the urologist by the urologist advised that if the blood is not in clots she should not worry too much about it. Here in the emergency department, potassium was 3.2 creatinine 2.13 serum calcium was 17.9. She admits to taking calcium supplements CT scan of the abdomen and pelvis was also done which showed a right-sided ureteral stent in situ and the mild right-sided hydronephrosis. There were also numerous stone fragments in the right renal collecting system. Patient has been started on IV fluids and will be admitted to the hospital further management. Admission Exam (Per Admitting) Constitutional The patient is awake, alert and oriented 3, well developed and well nourished, normocephalic and atraumatic, lying in bed and in no acute distress. HEENT--PERRL, EOMI, mucous membranes and oropharynx mildly dry Neck--supple. No JVD. No bruits. Thyroid normal, trachea midline, no adenopathy. Heart--normal S1 and S2. No murmurs, rubs or gallops. Lungs--clear bilaterally, no respiratory distress, no accessory muscle use. Abdomen--normal bowel sounds and soft. Extremities--no cyanosis or clubbing. No edema. Dermatologic--normal skin turgor, normal color, no abnormal lymph nodes, no rash. Neurologic--cranial nerves II through XII grossly intact. Rheumatologic--normal range of motion. Psychiatric--normal affect. Discharge Data Consultations 01/06/25 16:54 ED Decision to Admit Stat 01/06/25 16:58 Consult Urology Routine Hospital Course (1) Hypercalcemia: (2) S/P ureteral stent placement: (3) Generalized weakness: (4) Hematuria: (5) Nephrolithiasis: (6) CAD (coronary artery disease): (7) Hyperparathyroidism: Plan This a 70-year-old female with a history of CAD status post stents, kidney stones, status post ureteral stone who presents to the hospital with generalized weakness. Found to have hypercalcemia 1. Hypercalcemia: Etiology is uncertain, could be due to taking calcium supplements, or due to hyperparathyroidism Presented with a calcium of 17.3 intact PTH in wnl Start IV normal saline 100 cc/h IV zoledronic acid once (it continues working for a few days) Recheck calcium 10.6 Will discharge her today Hold oral calcium supplements 2. Generalized weakness: Most likely due to hypercalcemia and dehydration Continue IV fluid as above 3. Kidney stone: Status post ureteral stent Bed patient, plan is for urology to remove the stent outpatient on Thursday Urology evaluated while here in the hospital, plan is still for outpatient removal of stent on Thursday 4. CAD: Status post stent in LAD Continue Plavix, aspirin 5. Hematuria: Recently had a stent inserted According to the patient, hematuria is mild and does not involve blood clots Hemoglobin is stable 6.MICHEAL: Most likely prerenal due to dehydration Continue IV normal saline 100 cc/h CT scan showed evidence of mild hydronephrosis 7 Hypokalemia replace potassium Full code Admit to med surg Coding Level of Care Code 44030 INP/OBS DISCH >30 MIN Diagnoses Hypercalcemia E83.52 S/P ureteral stent placement Z96.0 Generalized weakness R53.1 Gross hematuria R31.0 Hematuria type: gross Nephrolithiasis N20.0 Coronary artery disease involving [place] coronary artery of [place] heart without angina pectoris I25.10 Coronary Disease-Associated Artery/Lesion type: [place] artery [place] vs. transplanted heart: [place] heart Associated angina: without angina Hyperparathyroidism E21.3 Time Spent (min) 35
[2025-01-08] MEDS: POLYETHYLENE (MIRALAX) 17 GM PACK PO SCH (11:32)
== END 2025-01-08 12:37 | disposition home or self-care (01) | DRG 641 ==
LOC: ED 14:42 → EDINP 16:54 → INTOOBSV 16:54 → 3N 17:22